=== PATIENT | female | born 1940 ===

== ENCOUNTER 2024-04-06 02:28 | Emergency (ER) | payer OTHER, SELFPAY ==
[2024-04-06 02:31] VITALS: BP 134/76
[2024-04-06 02:36] VITALS: BP 134/76
--- NOTE | 2024-04-06 02:44 | ED.GENMED ---
History of Present Illness
<Joshua Man DO - Last Filed: 04/06/24 08:01>
General
Chief Complaint: Chest Pain
Source: patient and ambulance crew
Exam Limitations: none
Time Seen by Provider: 04/06/24 02:30
Nursing documentation reviewed up to this point in time: agreed with
History of Present Illness
History of Present Illness:
This a pleasant 83-year-old female presents with substernal chest pain that began approximate 11:30 PM. She states that it awakened her from sleep. She states that it is constant in nature and does not radiate. Denies previous cardiac history.
Denies fever, chills, nausea or vomiting. She states that she has had no abdominal pain. Patient took full aspirin at home. She did receive nitroglycerin which seemed to help with her chest pain. Denies any other complaints. Still states the
pain is 4 out of 10.
Review of Systems
<RAVINDER Figueredo - Last Filed: 04/07/24 22:48>
Review of Systems
Allergies reviewed?: Yes
Constitutional: Reports no symptoms
EENT: Reports no symptoms
Respiratory: Reports no symptoms
Cardiac: Reports chest pain
ABD/GI: Reports no symptoms
: Reports no symptoms
Musculoskeletal: Reports no symptoms
Neurological: Reports no symptoms
Phy Exam
<RAVINDER Figueredo - Last Filed: 04/07/24 22:48>
General Physical Exam
General Presentation: well appearing
General age: appears stated age
General Skin: warm and dry
General Habitus: elderly
General Mental: alert
General Hydration: appears well hydrated
Cardiovascular Exam
Cardiovascular Exam: regular rate/rhythm and no murmur
Pulmonary Exam
Pulmonary Exam: lungs clear and no respiratory distress
Gastrointestinal Exam
Gastrointestinal Exam: normal bowel sounds, non tender, soft and non distended
Scores
<Joshua Man, - Last Filed: 04/06/24 08:01>
Heart Failure Risk
Heart Failure Risk Score: Yes
History of Stroke or TIA: No
History of intubation for respiratory distress: No
Heart rate on ED arrival >/= 110: No
SaO2 <90% on arrival on room air: No
HR >/=110 during 3min walk test (or too ill to perform test): No
ECG has acute ischemic changes: No
Urea >/=12mmol/L (BUN 33.6mg/dL): No
Serum CO2>/=35mmol/L: No
Troponin I or T elevated to DE Level (0.4mg/dL): No
Course
<Joshua Man, DO - Last Filed: 04/06/24 08:01>
Orders/Labs/Results
Orders:
Orders
04/06/24 02:30
Electrocardiogram (*1) Urgent
Reason for Study: Chest Pain
Cardiac Monitoring- Treatment ONCE
EKG- Treatment ONCE
IV Insert/Care/Rem.- Treatment PRN
O2 Therapy [RESP] Urgent
Titrate/Wean O2 to maintain O2 sat greater than (%): 90
Special Instructions: Maintain sats >/=90%
Pulse Ox/spot Check [RESP] Urgent
Quantity: 1
Special Instructions: ON ROOM AIR
04/06/24 02:38
Comprehensive Metabolic Panel Urgent
Troponin I Urgent
04/06/24 02:39
Complete Blood Count/With Diff Urgent
04/06/24 02:46
Nitroglycerin Sublingual [Nitrostat (Sublingual)] 0.4 mg SL [id number] PRN
04/06/24 05:44
NT-proBNP Urgent
Comment: ADD ON
Troponin I Urgent
04/06/24 05:48
CR Chest - 2 Views Urgent
Comment:
Reason For Exam: chest pain
04/06/24 06:22
Acetaminophen [Tylenol] 650 mg PO NOW STA
04/06/24 06:56
Add On- LAB Urgent
Tests Added?: pro bnp
Abnormal Lab Results
04/06/24 04/06/24
02:38 02:39
MPV 11.4 H fL
(7.4-10.4)
Absolute Lymphs (auto) 1.0 L 10^3/uL
(1.2-3.4)
Neutrophils % 81.9 H %
(42.2-75.2)
Lymphocytes % 13.2 L %
(20.5-51.1)
Sodium 146 H mmol/L
(135-145)
Chloride 109 H mmol/L
(98-107)
Glucose 178 H mg/dl
(70-99)
04/06/24 02:39
04/06/24 02:38
Vital Signs
Initial and Last Documented VS:
Initial Vital Signs
Temp Pulse Resp BP
98 F 79 20 134/76
04/06/24 02:31 04/06/24 02:31 04/06/24 02:31 04/06/24 02:31
Last Documented Vital Signs
Temp Pulse Resp BP Pulse Ox
97.6 F 86 22 135/71 96
04/06/24 09:07 04/06/24 09:07 04/06/24 09:07 04/06/24 09:07 04/06/24 09:07
<RAVINDER Figueredo - Last Filed: 04/07/24 22:48>
Orders/Labs/Results
Orders:
Orders
04/06/24 02:30
Electrocardiogram (*1) Urgent
Reason for Study: Chest Pain
Cardiac Monitoring- Treatment ONCE
EKG- Treatment ONCE
IV Insert/Care/Rem.- Treatment PRN
O2 Therapy [RESP] Urgent
Titrate/Wean O2 to maintain O2 sat greater than (%): 90
Special Instructions: Maintain sats >/=90%
Pulse Ox/spot Check [RESP] Urgent
Quantity: 1
Special Instructions: ON ROOM AIR
04/06/24 02:38
Comprehensive Metabolic Panel Urgent
Troponin I Urgent
04/06/24 02:39
Complete Blood Count/With Diff Urgent
04/06/24 02:46
Nitroglycerin Sublingual [Nitrostat (Sublingual)] 0.4 mg SL [id number] PRN
04/06/24 05:44
NT-proBNP Urgent
Comment: ADD ON
Troponin I Urgent
04/06/24 05:48
CR Chest - 2 Views Urgent
Comment:
Reason For Exam: chest pain
04/06/24 06:22
Acetaminophen [Tylenol] 650 mg PO NOW STA
04/06/24 06:56
Add On- LAB Urgent
Tests Added?: pro bnp
Abnormal Lab Results
04/06/24 04/06/24
02:38 02:39
MPV 11.4 H fL
(7.4-10.4)
Absolute Lymphs (auto) 1.0 L 10^3/uL
(1.2-3.4)
Neutrophils % 81.9 H %
(42.2-75.2)
Lymphocytes % 13.2 L %
(20.5-51.1)
Sodium 146 H mmol/L
(135-145)
Chloride 109 H mmol/L
(98-107)
Glucose 178 H mg/dl
(70-99)
04/06/24 02:39
04/06/24 02:38
Vital Signs
Initial and Last Documented VS:
Initial Vital Signs
Temp Pulse Resp BP
98 F 79 20 134/76
04/06/24 02:31 04/06/24 02:31 04/06/24 02:31 04/06/24 02:31
Last Documented Vital Signs
Temp Pulse Resp BP Pulse Ox
97.6 F 86 22 135/71 96
04/06/24 09:07 04/06/24 09:07 04/06/24 09:07 04/06/24 09:07 04/06/24 09:07
<RAVINDER Figueredo - Last Filed: 04/07/24 22:48>
MDM/Problems Addressed
Differential Diagnosis Includes:
STEMI, NSTEMI, costochondritis, pericarditis, stable angina
Chronic conditions affecting care: HTN
<Joshua Man DO - Last Filed: 04/06/24 08:01>
Update Note
Update Note:
04/06/24 @ 6:05am: Pt reports she is experiencing a headache, this is likely due to the nitroglycerin that was administered earlier. Dr. Man ordering tylenol for the pain to be administered when she returns frm XRay.
04/06/2024 0752 AM: Patient resting comfortably. Still awaiting proBNP.
<RAVINDER Figueredo - Last Filed: 04/07/24 22:48>
Update Note
Update Note:
04/06/24 @ 6:05am: Pt reports she is experiencing a headache, this is likely due to the nitroglycerin that was administered earlier. Dr. Man ordering tylenol for the pain to be administered when she returns frm XRay.
ED Attending Note
<Joshua Man DO - Last Filed: 04/06/24 08:01>
-
Portions of this chart may have been created with voice recognition software.� Occasional wrong word or��sound alike� substitutions may have occurred due to the inherent limitations of voice recognition software.
Discharge Plan
Departure
Patient Disposition: Home (Routine Discharge)
Date of Disposition: 04/06/24
Time of Disposition: 07:58
Patient with high blood pressure during this ER visit?: Yes
Condition: Good
Discharge Problem:
Chest pain, Chest congestion
Instructions: Chest Pain DCA Follow Up
Prescriptions:
No Action
atorvastatin [Lipitor] 10 mg Tablet
10 mg PO DAILY
amlodipine 5 mg Tablet
5 mg PO DAILY
Referrals:
Sharon Jay MD [Family Provider] -
Activity Restrictions/Additional Instructions:
It was a pleasure meeting you and taking part in your care. We hope for your continued healing and wellness.
Please read discharge instructions in their entirety. However, they are for general education and may not describe your exact diagnosis at discharge. Information on your ER visit and medical conditions were discussed with you along with appropriate
follow up information...
If indicated, please take your medications as instructed and indicated on discharge paperwork.
Please schedule a follow up appointment as directed. Call to schedule an appointment
Please return to the emergency department with ANY change in, persisting, or worsening of symptoms. If any of your symptoms do not improve, or persist, or become more severe within 6-12 hours, please return to the emergency department for further
care.
Please return to the emergency department if you develop a headache, neck pain/stiffness, fever greater than 100.4F, chest pain, shortness of breath, persistent nausea, vomiting, slurred speech, difficulty walking, numbness/tingling, weakness, signs
of infection or any other symptoms that are worrisome to you.
If you have any questions or concerns please do not hesitate to call the Hospital at or E-mail me directly at [email or web address]
Interventions
Interventions:
*Risk Screen - Suicide Last Done: 04/06/24 02:31
*General Assessment Last Done: 04/06/24 02:31
*Neglect/Abuse Screening Last Done: 04/06/24 02:31
ED- Fall Risk Assessment Last Done: 04/06/24 02:42
*ED COVID-19 Vaccine History Last Done: 04/06/24 02:31
*Nursing Disposition Last Done: 04/06/24 09:08
ED- Cardiac Assessment Last Done: 04/06/24 02:47
Discharge Date and Time
Discharge Date/Time: 04/06/24 09:08
Print Language: [id number]
[2024-04-06] MEDS: NITROSTAT (SUBLINGUAL) 0.4 MG SL ×2 (02:53→03:00)
--- NOTE | 2024-04-06 03:02 | EDRN ---
Pt says her chest pain increased after the first sl ntg
--- NOTE | 2024-04-06 03:07 | EDRN ---
Pt reports no change in chest pain after second sl ntg, still 10/10. HOB again repositioned. Dr Man informed and said to not give 3rd sl ntg.
[2024-04-06 03:08] LABS: % Basophils 0.4 % (0-2); % Eosinophils 0.3 % (0-6); % Immature Granulocytes 0.3 % (0-0.5); % Lymphocytes 13.2 % (20.5-51.1); % Monocytes 3.9 % (1.7-9.3); % Neutrophils 81.9 % (42.2-75.2); Absolute Monocytes 0.3 10^3/uL (0.1-0.6); Absolute Neutrophils 6.3 10^3/uL (1.4-6.5); Hematocrit 38.7 % (37.0-47.0); Hemoglobin 13.1 g/dL (12.0-16.0); Mean Corp Hgb Conc. 33.9 g/dL (33.0-37.0); Mean Corpuscular Hgb 28.3 pg (27.0-31.0); Mean Corpuscular Volume 83.6 fL (81.0-99.0); Mean Platelet Volume 11.4 fL (7.4-10.4); Nucleated Red Blood Cells % 0 %; Platelet Count 184 10^3/uL (130-400); Red Blood Cell Count 4.63 10^6/uL (4.20-5.40); Red Cell Dist. Width 13.9 % (11.5-14.5); White Blood Cell Count 7.7 10^3/uL (4.8-10.8)
[2024-04-06 03:20] LABS: ALT (SGPT) 16 U/L (0-35); AST (SGOT) 25 U/L (14-36); Albumin 4.4 g/dl (3.5-5.0); Alkaline Phosphatase 92 U/L (38-126); Blood Urea Nitrogen 16 mg/dl (7-17); Calcium 9.2 mg/dl (8.4-10.2); Carbon Dioxide 24 mmol/L (22-30); Chloride 109 mmol/L (98-107); Estimated Creatinine Clearance 47 ml/min; Glucose 178 mg/dl (70-99); Potassium 3.7 mmol/L (3.5-5.1); Sodium 146 mmol/L (135-145); Total Bilirubin 0.5 mg/dl (0.2-1.3); Total Protein 7.1 g/dl (6.3-8.2); eGFR > 60.00
[2024-04-06 03:32] LABS: Troponin I < 0.012 ng/ml
[2024-04-06 04:00] VITALS: BP 156/78
[2024-04-06 05:00] VITALS: BP 150/83
[2024-04-06 06:19] LABS: Troponin I < 0.012 ng/ml
[2024-04-06] MEDS: TYLENOL 650 MG PO (06:27)
[2024-04-06 08:12] LABS: NT-proBNP 366 pg/ml
[2024-04-06 09:07] VITALS: BP 135/71
== END 2024-04-06 09:08 | disposition home or self-care (01) ==
LOC: EMR 02:28
PROVIDERS: EMERGENCY PHYSICIAN Student in an Organized Health Care Education/Training Program; FAMILY PHYSICIAN Internal Medicine
DX: R07.89 Other chest pain (principal); R09.89 Other specified symptoms and signs involving the circulatory and respiratory systems; R03.0 Elevated blood-pressure reading, without diagnosis of hypertension
CPT/HCPCS: 99285; 71046; 80053; 83880; 84484; 85025; 93005